=== PATIENT | male | born 1955 | race Caucasian/White ===

== ENCOUNTER 2020-09-23 20:02 | Observation (INO) | payer BC ==
[2020-09-23] VITALS: BP 114/64; PULSE 68
[~2020-09-23] VITALS: Ht 185.4 cm; Wt 81.8 kg
[2020-09-23] MEDS ORDERED: SYNTHROID0.125 MG/T PO (21:22)
[2020-09-23] MEDS ORDERED: MOBIC15 MG PO (21:22)
[2020-09-23] MEDS ORDERED: PYRIDIUM 100MG100 MG PO (21:22)
[2020-09-23] MEDS ORDERED: FLOMAX 0.40.4 MG/CAP PO (21:23)
[2020-09-23] MEDS ORDERED: GLUCOSAMINE & C1 CAP PO (21:23)
[2020-09-23 22:30] VITALS: BP 118/63; PULSE 73; TEMP 98
--- NOTE | 2020-09-23 22:35 | NUR ---
Pt. arrived to the floor. Pt. is A&OX3, assessment complete. INT to rt. forearm patent. Pt. reports pain to the penis, gave levsin. Pt. denies further needs, call light within reach.
[2020-09-23 22:45] VITALS: BP 113/63; PULSE 65
[2020-09-23 23:00] VITALS: BP 116/64; PULSE 70
[2020-09-24 00:15] VITALS: BP 121/63; PULSE 63
[2020-09-24 01:15] VITALS: BP 121/58; PULSE 70
[2020-09-24 02:15] VITALS: BP 101/68; PULSE 59
[2020-09-24 04:27] VITALS: BP 117/61; PULSE 59; TEMP 97.6
[2020-09-24 07:38] VITALS: BP 120/64; PULSE 77; TEMP 98.1
--- NOTE | 2020-09-24 08:30 | NUR ---
Assessed patient and stated would be back with his morning medications. He was nervous about taking them this morning since Dr North has not been here to talk to him. Explained it was his medications he takes at home. He still verbalized he wanted to wait. No other changes at this time. Call selin moe.
--- NOTE | 2020-09-24 11:00 | NUR ---
Primed and pulled barnes catheter. Explained the procedure to the patient. He was very nervous and anxious about it being removed. He stated that he does not tolerate seeing this stuff and does not want to see the catheter being removed. He was shaking the entire time I removed it. Placed 200ml of saline into bladder. Removed 30ml from catheter balloon and removed catheter. Explained to patient that he needs to use a urinal so we can see the urine. He verbalized understanding. Mónica care provided. Offered him a shower but patient stated he would shower at home. No other changes at this time. Call light within reach.
[2020-09-24 11:51] VITALS: BP 139/69; PULSE 69; TEMP 97.7
--- NOTE | 2020-09-24 12:53 | NUR ---
Plan to return home independently. Patient reports that he resides [place] of [facility]. Patient reports that his son will transport him home. Paient indicated hat his phone needs to charge and cannot provide me with contact information. Patient reports that his pcp is Dr. Yusuf but also see, Dr. Woodard and Dr. North. Patient reports that he uses [facility] in [place] for medications. Patient denies having any skilled needs. Will continue to follow for care. Educated on services avaible to him.
--- NOTE | 2020-09-24 15:00 | NUR ---
Patient is discharging home. His urine started off pink with some sediment but was clear yellow at time of discharge. Questions asked and answered. He already has a follow up appointment scheduled. Copies of discharge instructions sent with patient. All belongings packed up and sent with patient. Patient walked out with this nurse. INT discontinued.
== END 2020-09-24 15:00 | disposition home or self-care (01) ==
LOC: COL.ER 20:02 → SURG 21:08
PROVIDERS: ADMIT Urology
DX: N32.0 Bladder-neck obstruction (principal); N32.89 Other specified disorders of bladder; R31.0 Gross hematuria; K21.9 Gastro-esophageal reflux disease without esophagitis; E03.9 Hypothyroidism, unspecified; Z79.890 Hormone replacement therapy
CPT/HCPCS: G0378; J1100; J2405; J2704; J3010; J7120